=== PATIENT | female | born 1970 | race Caucasian/White ===

== ENCOUNTER 2017-01-17 20:26 | Emergency (ER) | payer SELFPAY ==
[~2017-01-17] VITALS: Ht 165.1 cm; Wt 81.5 kg
[2017-01-17 20:49] VITALS: Ht 165.1 cm; Wt 81.5 kg
== END 2017-01-17 21:15 | disposition left against medical advice (07) ==
LOC: FTE 20:26 → E/R 21:15
DX: Z53.21 Procedure and treatment not carried out due to patient leaving prior to being seen by health care provider (principal)